=== PATIENT | male | born 1995 | race Two or more races ===

== ENCOUNTER 2019-12-13 19:03 | Emergency (ER) | payer SELFPAY ==
[~2019-12-13] VITALS: Ht 157.5 cm; Wt 65.0 kg
[2019-12-13 19:12] VITALS: BP 123/71
== END 2019-12-13 21:00 | disposition left against medical advice (07) ==
LOC: EMS 19:04
DX: S81.839A Puncture wound without foreign body, unspecified lower leg, initial encounter (principal); Z53.21 Procedure and treatment not carried out due to patient leaving prior to being seen by health care provider; X58.XXXA Exposure to other specified factors, initial encounter; Y93.89 Activity, other specified; Y92.89 Other specified places as the place of occurrence of the external cause; Y99.8 Other external cause status